=== PATIENT | male | born 1990 ===

== ENCOUNTER 2020-09-25 12:33 | Emergency (ER) | payer OTHER ==
[~2020-09-25] VITALS: Ht 177.8 cm; Wt 65.8 kg
[2020-09-25] MEDS ORDERED: L.E.T SOLUTION TP ONE ×3 (13:30→13:53)
[2020-09-25] MEDS ORDERED: LIDOCAINE 1%-EPI 1:100K, 20ML SQ ONE (13:30)
[2020-09-25 13:59] VITALS: BP 114/67
== END 2020-09-25 14:57 | disposition home or self-care (01) ==
LOC: ED 14:00
DX: K64.5 Perianal venous thrombosis (principal)
CPT/HCPCS: 46083; 99284